=== PATIENT | female | born 1950 | race Caucasian/White ===

== ENCOUNTER 2024-10-25 05:37 | Day surgery (SDC) | payer MEDICARE, BC ==
[2024-10-16 15:16] LABS: BASOPHILS # (AUTO) 0.1 X10'3 (0-0.2); BASOPHILS % (AUTO) 0.9 % (0-1); BILIRUBIN,URINE NEGATIVE (Neg); CLARITY,URINE CLEAR (Clear); COLOR,URINE YELLOW (Yellow); EOSINOPHILS # (AUTO) 0.1 X10'3 (0-0.9); EOSINOPHILS % (AUTO) 1.8 % (0-6); GLUCOSE, URINE NEGATIVE (Neg); KETONES,URINE TRACE mg/dl (Neg); LEUKOCYTE ESTERASE ,URINE MODERATE (Neg); LYMPHOCYTES # (AUTO) 2.1 X10'3 (1.1-4.8); LYMPHOCYTES % (AUTO) 34.6 % (21-51); MEAN CORPUSCULAR HEMOGLOBIN 31.1 PG (27.0-31.0); MEAN CORPUSCULAR HGB CONC 33.5 g/dL (33.0-36.5); MEAN CORPUSCULAR VOLUME 92.8 FL (78-98); MEAN PLATELET VOLUME 7.4 FL (7.4-10.4); MONOCYTES # (AUTO) 0.5 X10'3 (0-0.9); MONOCYTES % (AUTO) 8.2 % (2-12); NEUTROPHILS # (AUTO) 3.3 X10'3 (1.8-7.7); NEUTROPHILS % (AUTO) 54.5 % (42-75); NITRITES, URINE NEGATIVE (Neg); OCCULT BLOOD,URINE NEGATIVE (Neg); PH,URINE 5.5 (4.8-8.0); PRE OP HEMATOCRIT 41.1 % (35.0-45.0); PRE OP HEMOGLOBIN 13.8 g/dL (12.0-16.0); PRE OP PLATELET COUNT 329 X10'3 (140-440); PRE OP WHITE BLOOD COUNT 6.1 10'3 (4.8-10.8); PROTEIN,URINE NEGATIVE (Neg); RED BLOOD COUNT 4.43 X10'6 (4.20-5.60); RED CELL DISTRIBUTION WIDTH 14.1 % (11.5-14.5); UROBILINOGEN,URINE 0.2 E.U/dL (0.2-1.0)
[2024-10-16 15:17] LABS: ALBUMIN 3.9 G/DL (3.4-5.0); ALKALINE PHOSPHATASE 81 IU/L (46-116); BLOOD UREA NITROGEN 17 MG/DL (7-18); BUN/CREATININE RATIO 19.1 (10.0-20.0); CALCIUM 9.7 MG/DL (8.5-10.1); CHLORIDE 108 MMOL/L (99-107); CREATININE 0.89 MG/DL (0.40-0.90); PRE OP ALT 36 U/L (30-65); PRE OP ANION GAP 6 (8-16); PRE OP AST 38 U/L (10-37); PRE OP BILIRUB, TOTAL 0.4 MG/DL (0.0-1.0); PRE OP GLUCOSE 125 MG/DL (70-104); PRE OP POTASSIUM 3.9 MMOL/L (3.4-5.1); PRE OP SODIUM 147 MMOL/L (135-145); TOTAL CARBON DIOXIDE 33.4 MMOL/L (24-32); TOTAL PROTEIN 7.7 G/DL (6.4-8.2); eGFR 62 ML/MIN
[2024-10-16 15:30] LABS: UA COLLECTION TYPE CLN CATCH MIDSTREAM
[2024-10-16 15:32] LABS: BACTERIA,URINE 1+ /HPF (Neg); RBC,URINE 0-2 /HPF (0-2); SQUAMOUS EPITHELIAL CELL,UR MODERATE /LPF (FEW); WBC,URINE 20-30 /HPF (0-4)
[~2024-10-25] VITALS: Ht 157.5 cm; Wt 65.8 kg
[2024-10-25] VITALS (33 sets, daily range): BP systolic 108–146; BP diastolic 40–71; PULSE 60–95; RESP 11–18; TEMP 97.8–98.6; O2SAT 90–100
[2024-10-25] MEDS: ceFOXitin 2GM-NS 100mL ADDvant 100 ML IV ONE (05:30)
[~2024-10-25 05:37] MED LIST: ATOR10TA70 PO; B12; CALCIUM; FAMO40TA7 PO; GABA-1405 PO; GABA-530 PO; IRON; MELO-102 PO; MOME17SP11; VIT C; VIT D3
[2024-10-25] MEDS: famotidine 20mg tablet PO ONE (06:36)
[2024-10-25] MEDS: ringers solution, lacted 1,000 ML IV SCH ×3 (06:38→12:36)
[2024-10-25] MEDS ORDERED: fentaNYL/PF 50MCG/1 ML 2ML syringe ONE (07:17)
[2024-10-25] MEDS ORDERED: BUPIVAcaine 2.5mg/ml inj 50ml vial (contains preservative) ONE (07:19)
[2024-10-25] MEDS ORDERED: clindamycin phosphate 40gm vag cream ONE (07:19)
[2024-10-25] MEDS ORDERED: vasoPRESSIN 20 units/ml inj. ONE ×2 (07:20→07:23)
[2024-10-25] MEDS ORDERED: sevoflurane 250ml liquid IH ONE (08:02)
[2024-10-25] MEDS ORDERED: fluoroscein sod 10% (100mg/ml) 5ml vial ONE (11:04)
[2024-10-25] MEDS ORDERED: HYDROmorphone 1 mg/ml syringe ONE (11:54)
[2024-10-25] MEDS ORDERED: metoclopramide 5 mg/ml inj IV PRN (12:05)
[2024-10-25] MEDS ORDERED: ondansetron/PF 4mg/2ml inj IV PRN ×2 (12:05→12:15)
[2024-10-25] MEDS ORDERED: diphenhydrAMINE 50 mg/ml inj IV PRN (12:05)
[2024-10-25] MEDS ORDERED: HYDROcodone/acetaminophen 10/325mg tab PO PRN (12:05)
[2024-10-25] MEDS ORDERED: LORazepam 2 mg/ml vial IV PRN (12:05)
[2024-10-25] MEDS ORDERED: temazepam 15mg capsule PO PRN (12:05)
[2024-10-25] MEDS ORDERED: normal saline 500ml IV soln 500 ML IV PRN (12:05)
[2024-10-25] MEDS ORDERED: ketorolac trometh 15mg/ml vial 15 MG/ML ML IV PRN (12:05)
[2024-10-25] MEDS ORDERED: magnesium hydroxide 30ml (MOM) UD suspension PO PRN (12:05)
[2024-10-25] MEDS ORDERED: morphine 4 MG/ML inj SYRINge IV PRN (12:15)
[2024-10-25] MEDS ORDERED: meperidine/PF 25mg/ml syringe IV PRN ×2 (12:15)
[2024-10-25] MEDS ORDERED: hydrALAZINE 20mg/ml inj. IV PRN (12:15)
[2024-10-25] MEDS ORDERED: morphine 2 MG/ML inj. syringe IV PRN (12:15)
[2024-10-25] MEDS ORDERED: proCHLORperazine 10 MG/2 ml inj IV PRN (12:15)
[2024-10-25] MEDS ORDERED: labetalol 20mg/4ml (5mg/ml) syringe IV PRN (12:15)
[2024-10-25] MEDS: acetaminophen 1,000mg/100ml IV 100 ML IV PRN (12:36)
[2024-10-25] MEDS: HYDROcodone/acetaminophen 10/325mg tab PO PRN (17:09)
[2024-10-25] MEDS: docusate sod 100mg capsule PO SCH (20:54)
[2024-10-25] MEDS: gabapentin 300mg capsule PO SCH (20:54)
[2024-10-25] MEDS: famotidine 20mg tablet PO SCH (20:54)
[2024-10-25] MEDS: atorvastatin 10mg tablet PO SCH (20:54)
[2024-10-26 04:57] LABS: BASOPHILS % (AUTO) 0.3 % (0-1); EOSINOPHILS % (AUTO) 0 % (0-6); HEMATOCRIT 29.6 % (35.0-45.0); HEMOGLOBIN 9.9 g/dl (12.0-16.0); LYMPHOCYTES # (AUTO) 1.6 X10'3 (1.1-4.8); LYMPHOCYTES % (AUTO) 17.2 % (21-51); MEAN CORPUSCULAR HEMOGLOBIN 31.2 PG (27.0-31.0); MEAN CORPUSCULAR HGB CONC 33.6 g/dL (33.0-36.5); MEAN CORPUSCULAR VOLUME 92.8 FL (78-98); MONOCYTES % (AUTO) 10.6 % (2-12); NEUTROPHILS # (AUTO) 6.7 X10'3 (1.8-7.7); NEUTROPHILS % (AUTO) 71.9 % (42-75); PLATELET COUNT 268 X10'3 (140-440); RED BLOOD COUNT 3.19 X10'6 (4.20-5.60); RED CELL DISTRIBUTION WIDTH 14.1 % (11.5-14.5); WHITE BLOOD COUNT 9.2 X10'3 (4.5-11.0)
[2024-10-26 05:04] LABS: ALBUMIN 2.7 G/DL (3.4-5.0); ANION GAP 7 (8-16); BLOOD UREA NITROGEN 20 MG/DL (7-18); CALCIUM 8.1 MG/DL (8.5-10.1); CHLORIDE 103 MMOL/L (99-107); CREATININE 0.77 MG/DL (0.40-0.90); GLUCOSE 112 MG/DL (70-104); POTASSIUM 4.3 MMOL/L (3.5-5.1); SODIUM 137 MMOL/L (135-145); TOTAL CARBON DIOXIDE 27.4 MMOL/L (24-32); eCRCL 51 ML/MIN; eGFR 73 ML/MIN
[2024-10-26 06:00] VITALS: BP 129/75; PULSE 73; RESP 14; TEMP 97.5; O2SAT 93
[2024-10-26] MEDS: MELOXICAM 7.5 MG TABLET PO SCH (08:00)
[2024-10-26 09:32] LABS: BASOPHILS # (AUTO) 0.1 X10'3 (0-0.2); BASOPHILS % (AUTO) 0.7 % (0-1); EOSINOPHILS % (AUTO) 0.2 % (0-6); HEMATOCRIT 34.3 % (35.0-45.0); HEMOGLOBIN 11.3 g/dl (12.0-16.0); LYMPHOCYTES # (AUTO) 2.4 X10'3 (1.1-4.8); LYMPHOCYTES % (AUTO) 22.6 % (21-51); MEAN CORPUSCULAR HEMOGLOBIN 30.8 PG (27.0-31.0); MEAN CORPUSCULAR HGB CONC 32.9 g/dL (33.0-36.5); MEAN CORPUSCULAR VOLUME 93.6 FL (78-98); MEAN PLATELET VOLUME 7.9 FL (7.4-10.4); MONOCYTES # (AUTO) 0.9 X10'3 (0-0.9); NEUTROPHILS # (AUTO) 7.3 X10'3 (1.8-7.7); NEUTROPHILS % (AUTO) 68.5 % (42-75); PLATELET COUNT 260 X10'3 (140-440); RED BLOOD COUNT 3.67 X10'6 (4.20-5.60); RED CELL DISTRIBUTION WIDTH 14.6 % (11.5-14.5); WHITE BLOOD COUNT 10.6 X10'3 (4.5-11.0)
[2024-10-26] MEDS: fluticasone nasal spray 16GM bottle NS SCH (09:37)
[2024-10-26] MEDS: gabapentin 100mg capsule PO SCH (09:38)
[2024-10-26 10:00] VITALS: BP 100/46; PULSE 81; RESP 18; TEMP 97.8; O2SAT 93
[2024-10-26 11:01] VITALS: RESP 16; O2SAT 93
[2024-10-26 14:15] VITALS: RESP 16
== END 2024-10-26 17:44 | disposition home or self-care (01) ==
LOC: PAS 05:37 → SUR 3N 16:16 → PAS 10-26 17:44
PROVIDERS: ATTEND Obstetrics & Gynecology Obstetrics
DX: N81.4 Uterovaginal prolapse, unspecified (principal); N81.9 Female genital prolapse, unspecified; E78.00 Pure hypercholesterolemia, unspecified; N18.30 Chronic kidney disease, stage 3 unspecified; K21.9 Gastro-esophageal reflux disease without esophagitis; G47.33 Obstructive sleep apnea (adult) (pediatric); M81.0 Age-related osteoporosis without current pathological fracture; L30.9 Dermatitis, unspecified; I70.0 Atherosclerosis of aorta; H91.93 Unspecified hearing loss, bilateral; I83.93 Asymptomatic varicose veins of bilateral lower extremities; J31.0 Chronic rhinitis; M10.9 Gout, unspecified; M19.90 Unspecified osteoarthritis, unspecified site; M51.369 Other intervertebral disc degeneration, lumbar region without mention of lumbar back pain or lower extremity pain; L82.1 Other seborrheic keratosis; Z87.891 Personal history of nicotine dependence; Z98.890 Other specified postprocedural states; Z79.891 Long term (current) use of opiate analgesic; Z79.899 Other long term (current) drug therapy
CPT/HCPCS: 36415; 57260; 57425; 58552; 71046; 80048; 80053; 81001; 82948; 85025; 86885; 86900; 86901; 87081; 87088; A4314; A4355; A4615; A4618; A6446; A7000; J0131; J0694; J1100; J1171; J1885; J2003; J2405; J2704; J3010; J3490; J7030; J7120; Z7506; Z7508; Z7512; Z7610; 88307; G0378